=== PATIENT | female | born 1980 | race Caucasian/White ===

== ENCOUNTER 2018-01-13 15:14 | Emergency (ER) | payer SELFPAY ==
[2018-01-13 15:17] VITALS: BP 136/71; BMI 21.6
[2018-01-13] MEDS ORDERED: TORADOL 30 MG VIAL IVP ONE (15:24)
[2018-01-13] MEDS ORDERED: ATIVAN INJ 2 MG VIAL IVP ONE (15:24)
[2018-01-13] MEDS ORDERED: ATIVAN INJ 2 MG VIAL ONE (15:26)
[2018-01-13] MEDS ORDERED: TORADOL 30 MG VIAL ONE (15:26)
[2018-01-13] MEDS ORDERED: NS 1000 ML 1,000 ML IV ONE (15:26)
--- NOTE | 2018-01-13 15:28 | DR.FBACK ---
HPI - Time Seen Time seen: 16:01 (seen on arrival to ER room) - PCP Primary Care Physician: OLIVA - HPI Comment HPI Comment: Rt flank pain that started this morning as a nagging pain, then became spasmodic and worse this afternoon. Pt slid into a pipe yesterday playing ball, no other hx trauma, no prior episodes. No hx kidney stones. No prior episodes - Complaint Chief Complaint:: PATIENT C/O RIGHT SIDED BACK PAIN THAT STARTED THIS MORNING THAT HAS INTENSIFIED IN BACK AND THE PAIN COMES AND GOES EVERY 2 MINUTES. PATIENT STATES SHE HAS BEEN DRINKING ALOT OF WATER AND DRANK A BEER. Self Treatment fo Chief Complaint: tried warm soaks with epsom salts, drinking lots of water, no help - Reviewed Nurses Notes Review: Yes - Source History Provided: Patient - Mode of Arrival Mode of Arrival: Ambulatory - Timing Onset of Chief Complaint: 01/13/18 - Duration Duration: Intermittent (see above for progression) - Location Back Pain Location: Right, BACK, Flank - Severity Severity: Severe PMH - PMH Past Medical History: No (no contrib PMH apart from) Past Surgical History: Yes Surgical History: No History Past Surgical History Comment: BRAIN SURGERY - Family History History of Family Medical Conditions: No - Social History Does patient currently use any type of tobacco product: No Have you used tobacco products in the last 12 months: Yes Type of Tobacco Use: None Does any household member use tobacco: No Alcohol Use: Occasionally Do you use any recreational Drugs:: No Lives With: Family Lives Where: Home - infectious screening In the last 2 months have you had wt loss of >10#?: NO Have you had fever, night sweats or hemotysis?: No Have you traveled outside the country in the last 6 months?: No Isolation: Standard ROS - Review of Systems Constitutional: No Symptoms Reported Eyes: No Symptoms Reported ENTM: No Symptoms Reported Respiratoy: No Symptoms Reported Cardiovascular: No Symptoms Reported Gastrointestinal/Abdominal: No Symptoms Reported Genitourinary: No Symptoms Reported. negative: Dysuria, Frequency, Hematuria, Pain, Bleeding Neurological: No Symptoms Reported Musculoskeletal: Back Pain (rt flank) Integumentary: No Symptoms Reported. negative: Rash Endocrine: No Symptoms Reported Psychiatric: No Symptoms Reported All Other Systems: Reviewed and Negative PE - Vitals Vital Signs: Temp Pulse Resp BP Pulse Ox 01/13/18 15:15 98.1 F 91 H 22 136/71 100 - General Limitations: No Limitations General Appearance: Alert, In Distress (due to flank pain) - Head Head Exam: Normal Inspection, Normocephalic - ENT ENT Exam: Normal Exam, Normal Oropharynx - Respiratory Respiratory Exam: Normal Lung Sounds Bilat Respiratory Exam: Bilateral Clear to Auscultation - Cardiovascular Cardiovascular Exam: Regular Rate, Normal Rhythm, Normal Heart Sounds - Abdominal Exam Abdominal Exam: Normal Inspection, Normal Bowel Sounds, Soft. negative: Distention, Tenderness, Guarding, Rebound, Rigidity - Extremities Extremities Exam: Normal Inspection, Full ROM, Tenderness, Normal Capillary Refill, Edema - Back Back Exam: Normal Inspection, Full ROM, (R) CVA Tenderness. negative: Vertebral Tenderness - Neurological Neurological Exam: Alert, Oriented X3, Normal Gait - Psychiatric Psychiatric Exam: Normal Affect, Normal Mood - Skin Skin Exam: Warm, Dry, Intact. negative: Rash ROR - Labs Reviewed Laboratory Results Reviewed?: Yes (reviewed w/pt) Result Diagrams: 01/13/18 15:38 01/13/18 15:38 Laboratory: WBC 12.2 X10^3/uL (3.6-10.0) H 01/13/18 15:38 RBC 5.06 X10^6/uL (3.5-5.4) 01/13/18 15:38 Hgb 15.2 g/dL (12.0-16.0) 01/13/18 15:38 Hct 44.1 % (36.0-47.0) 01/13/18 15:38 MCV 87.3 fL (80.0-100.0) 01/13/18 15:38 MCH 30.1 pg (27.0-34.0) 01/13/18 15:38 MCHC 34.5 g/dL (33.0-35.0) 01/13/18 15:38 RDW 14.0 % (11.6-16.5) 01/13/18 15:38 Plt Count 227 X10^3/uL (150.0-450.0) 01/13/18 15:38 MPV 7.7 fL (7.4-11.0) 01/13/18 15:38 Neut % (Auto) 76.8 % (42.0-75.0) H 01/13/18 15:38 Lymph % (Auto) 16.6 % (21.0-51.0) L 01/13/18 15:38 Crisp % (Auto) 4.8 % (0.0-13.0) 01/13/18 15:38 Eos % (Auto) 1.0 % (0.9-2.9) 01/13/18 15:38 Baso % (Auto) 0.8 % (0.2-1.0) 01/13/18 15:38 Neut # (Auto) 9.3 x10^3/uL (2.2-4.8) H 01/13/18 15:38 Lymph # (Auto) 2.0 X10^3/uL (1.3-2.9) 01/13/18 15:38 Crisp # (Auto) 0.6 x10^3/uL (0.3-0.8) 01/13/18 15:38 Eos # (Auto) 0.1 x10^3/uL (0.0-0.2) 01/13/18 15:38 Baso # (Auto) 0.1 X10^3/uL (0.0-0.1) 01/13/18 15:38 Absolute Nucleated RBC 0.0 /100WBC 01/13/18 15:38 Sodium 136 mmol/L (136-145) 01/13/18 15:38 Corrected Sodium TNP 01/13/18 15:38 Potassium 4.1 mmol/L (3.5-5.1) 01/13/18 15:38 Chloride 100 mmol/L (98-107) 01/13/18 15:38 Carbon Dioxide 22.4 mmol/L (21-32) 01/13/18 15:38 BUN 9 mg/dL (7-18) 01/13/18 15:38 Creatinine 0.60 mg/dL (0.55-1.02) 01/13/18 15:38 Est GFR (MDRD) Af Amer > 60 (>60) 01/13/18 15:38 Est GFR (MDRD) Non-Af > 60 (>60) 01/13/18 15:38 Glucose 91 mg/dL (65-99) 01/13/18 15:38 Calcium 9.1 mg/dL (8.5-10.1) 01/13/18 15:38 Corrected Calcium TNP 01/13/18 15:38 Total Bilirubin 0.60 mg/dL (0.2-1.0) 01/13/18 15:38 AST 19 Units/L (15-37) 01/13/18 15:38 ALT 26 Units/L (12-78) 01/13/18 15:38 Alkaline Phosphatase 85 Units/L (46-116) 01/13/18 15:38 Total Protein 8.6 g/dL (6.4-8.2) H 01/13/18 15:38 Albumin 4.8 g/dL (3.4-5.0) 01/13/18 15:38 Globulin 3.8 g/dL (2.5-4.5) 01/13/18 15:38 Albumin/Globulin Ratio 1.3 Ratio (1.1-2.1) 01/13/18 15:38 Lipase 79 Units/L (73-393) 01/13/18 15:38 Specimen Type Clean catch urine 01/13/18 15:30 Urine Color Yellow (YELLOW) 01/13/18 15:30 Urine Appearance Hazy (CLEAR) 01/13/18 15:30 Urine pH 6.0 (5.0 - 8.0) 01/13/18 15:30 Ur Specific [place] 1.010 (1.000-1.030) 01/13/18 15:30 Urine Protein 3+ (NEGATIVE) 01/13/18 15:30 Urine Glucose (UA) Negative (NEGATIVE) 01/13/18 15:30 Urine Ketones Negative (NEGATIVE) 01/13/18 15:30 Urine Occult Blood 5+ (NEGATIVE) 01/13/18 15:30 Urine Nitrite Negative (NEGATIVE) 01/13/18 15:30 Urine Bilirubin Negative (NEGATIVE) 01/13/18 15:30 Urine Urobilinogen Normal (NORMAL) 01/13/18 15:30 Ur Leukocyte Esterase 3+ (NEGATIVE) 01/13/18 15:30 Urine RBC 3-5 /HPF (NONE SEEN) 01/13/18 15:30 Urine WBC Tntc /HPF (NONE SEEN) 01/13/18 15:30 Ur Squamous Epith Cells Few /HPF (NEGATIVE) 01/13/18 15:30 Amorphous Sediment Trace /HPF (NEGATIVE) 01/13/18 15:30 Urine Bacteria 2+ /HPF (NEGATIVE) 01/13/18 15:30 Hyaline Casts Rare /LPF (NEGATIVE) 01/13/18 15:30 Ur Culture Indicated? Yes/culture set up 01/13/18 15:30 - XRAY XRAY Interpreted by: Radiologist XRAY Findings: ct w/mild hydro rt kidney, no stone seen (?passed stone?) no other acute - Diagnosis Discharge Problem: Urinary tract stones, UTI (urinary tract infection) - Discharge Plan Disposition: HOME, SELF-CARE Condition: Stable Prescriptions: Amoxicillin/Potassium Clav [Augmentin 875-125 Tablet] 1 tab PO Q12H #20 tab Ketorolac Tromethamine [Toradol Tab] 10 mg PO Q8H PRN #12 tab PRN Reason: Pain - Follow ups/Referrals Follow ups/Referrals: NFD,None [Primary Care Provider] - 3 days - Instructions Instructions: Antibiotic Medicine, Adult, Kidney Stones, [id number], Urinary Tract Infection, Adult, [id number] Additional Notes - Additional Notes Additional Notes: Pt in distress due to pain on arrival, responded quickly and well to toradol and ativan. Reviewed w/u with pt, question of recently passed stone(passed on arrival to ER). Will give rocephin x 1g IV uuin ER and Rx Augmentin for UTI
[2018-01-13] MEDS ORDERED: NS 1000 ML 1,000 ML ONE (15:31)
[2018-01-13 15:47] LABS: BASOPHILS # (AUTO) 0.1 X10^3/uL (0.0-0.1); BASOPHILS % (AUTO) 0.8 % (0.2-1.0); EOSINOPHILS # (AUTO) 0.1 x10^3/uL (0.0-0.2); HEMATOCRIT 44.1 % (36.0-47.0); HEMOGLOBIN 15.2 g/dL (12.0-16.0); LYMPHOCYTES % (AUTO) 16.6 % (21.0-51.0); MEAN CORPUSCULAR HEMOGLOBIN 30.1 pg (27.0-34.0); MEAN CORPUSCULAR HGB CONC 34.5 g/dL (33.0-35.0); MEAN CORPUSCULAR VOLUME 87.3 fL (80.0-100.0); MEAN PLATELET VOLUME 7.7 fL (7.4-11.0); MONOCYTES # (AUTO) 0.6 x10^3/uL (0.3-0.8); MONOCYTES % (AUTO) 4.8 % (0.0-13.0); NEUTROPHILS # (AUTO) 9.3 x10^3/uL (2.2-4.8); NEUTROPHILS % (AUTO) 76.8 % (42.0-75.0); PLATELET COUNT 227 X10^3/uL (150.0-450.0); RED BLOOD COUNT 5.06 X10^6/uL (3.5-5.4); WHITE BLOOD COUNT 12.2 X10^3/uL (3.6-10.0)
[2018-01-13 15:57] LABS: ALANINE AMINOTRANSFERASE 26 Units/L (12-78); ALBUMIN 4.8 g/dL (3.4-5.0); ALKALINE PHOSPHATASE 85 Units/L (46-116); ASPARTATE AMINO TRANSFERASE 19 Units/L (15-37); BLOOD UREA NITROGEN 9 mg/dL (7-18); CALCIUM 9.1 mg/dL (8.5-10.1); CARBON DIOXIDE 22.4 mmol/L (21-32); CHLORIDE 100 mmol/L (98-107); LIPASE 79 Units/L (73-393); SODIUM 136 mmol/L (136-145); TOTAL PROTEIN 8.6 g/dL (6.4-8.2); eGFR BLACK RACES > 60 (>60); eGFR NON BLACK RACES > 60 (>60)
[2018-01-13 15:57] LABS: BILIRUBIN,URINE NEGATIVE (NEGATIVE); BLOOD/HEMOGLOBIN,URINE 5+ (NEGATIVE); GLUCOSE, URINE NEGATIVE (NEGATIVE); KETONES,URINE NEGATIVE (NEGATIVE); LEUKOCYTE ESTERASE ,URINE 3+ (NEGATIVE); NITRITES,URINE NEGATIVE (NEGATIVE); PROTEIN,URINE 3+ (NEGATIVE); UROBILINOGEN,URINE NORMAL (NORMAL)
[2018-01-13 15:58] LABS: APPEARANCE,URINE HAZY (CLEAR); COLOR,URINE YELLOW (YELLOW)
--- NOTE | 2018-01-13 16:05 | CT ---
HISTORY: Suspected kidney stone, right flank pain Study: CT abdomen and pelvis without IV or oral contrast Comparison: No priors Technique: Multiple axial images of the abdomen and pelvis were obtained from the lung bases to the pubic symphy sis without the administration of IV or oral contrast. Coronal and sagittal images are also reviewed . Dose reduction techniques utilized automatic exposure control. Findings: The visualized portions of the lung bases are unremarkable. The liver, spleen, pancreas, left kidney and adrenal glands are unremarkable in their CT appearance. Multiple small calcified gallstones are present. No evidence of gallbladder wall thickening or pericholecystic fluid is seen.. There is very mild right-sided hydronephrosis. The right ureter is normal. No evidence of kidney stone is seen. The re is no evidence of hydroureter. No significant mesenteric lymphadenopathy or stranding can be obse rved. No free fluid or free air is seen within the abdomen. No bowel wall thickening or bowel dilat ation is present. A small calcification is present within the appendix which may represent appendicol ith. No evidence of appendiceal enlargement or periods appendiceal inflammatory changes are seen. The appendix and calcification are best seen on series 3, image 78 and also on series 5, image 17. The colon is unremarkable. Specifically, there is no diverticulosis noted within the sigmoid colon. Uter us and ovaries are normal. The urinary bladder is grossly unremarkable. Small calcifications are pres ent involving the region of bladder base on the left these are likely vascular The bony structures a re grossly intact. IMPRESSION: Multiple small calcified gallstones. No evidence of gallbladder wall thickening or pericholecystic fl uid is seen. Very mild right-sided hydronephrosis. Right ureter is normal. No evidence of kidney stone is seen on either side. Calcification present within a normal appearing appendix. Reported By:
[2018-01-13 16:15] LABS: AMORPHOUS SEDIMENT,UR TRACE /HPF (NEGATIVE); BACTERIA,URINE 2+ /HPF (NEGATIVE); SQUAMOUS EPITHELIAL CELL,UR FEW /HPF (NEGATIVE)
[2018-01-13 16:16] LABS: HYALINE CASTS, URINE RARE /LPF (NEGATIVE)
[2018-01-13] MEDS ORDERED: ROCEPHIN 1 GM IV PREMIX 1 GM/50 ML IV.SOLN. IV ONE ×2 (16:45→16:46)
== END 2018-01-13 17:11 | disposition home or self-care (01) ==
LOC: ER 15:30
DX: N21.0 Calculus in bladder (principal); N39.0 Urinary tract infection, site not specified; N13.30 Unspecified hydronephrosis; B96.20 Unspecified Escherichia coli [E. coli] as the cause of diseases classified elsewhere
CPT/HCPCS: 36415; 74176; 80053; 81001; 83690; 85025; 87086; 87088; 87186; 96365; 96374; 96375; 99283; A4222; J0696; J1885; J2060

== ENCOUNTER 2021-06-21 06:28 | Inpatient (IN) ==
[2021-06-21] MEDS ORDERED: ANCEF 1 GRAM IV PREMIX* 1 G/50 ML BAG IV ONE ×2 (06:35→07:57)
[2021-06-21] MEDS ORDERED: LR 1000 ML IV 1,000 ML IV ONE ×3 (06:35→08:45)
[2021-06-21] MEDS ORDERED: ANCEF VIAL 1 GRAM IVP ONE (06:44)
[2021-06-21 07:08] LABS: BASOPHILS # (AUTO) 0.1 X10^3/uL (0.0-0.1); BASOPHILS % (AUTO) 0.7 % (0.2-1.0); EOSINOPHILS # (AUTO) 0.1 x10^3/uL (0.0-0.2); EOSINOPHILS % (AUTO) 0.7 % (0.9-2.9); HEMATOCRIT 36.1 % (36.0-47.0); HEMOGLOBIN 12.5 g/dL (12.0-16.0); LYMPHOCYTES # (AUTO) 1.9 X10^3/uL (1.3-2.9); LYMPHOCYTES % (AUTO) 19.3 % (21.0-51.0); MEAN CORPUSCULAR HEMOGLOBIN 29.2 pg (27.0-34.0); MEAN CORPUSCULAR HGB CONC 34.7 g/dL (33.0-35.0); MEAN CORPUSCULAR VOLUME 84.1 fL (80.0-100.0); MEAN PLATELET VOLUME 8.7 fL (7.4-11.0); MONOCYTES # (AUTO) 0.5 x10^3/uL (0.3-0.8); MONOCYTES % (AUTO) 5.1 % (0.0-13.0); NEUTROPHILS # (AUTO) 7.2 x10^3/uL (2.2-4.8); NEUTROPHILS % (AUTO) 74.2 % (42.0-75.0); PLATELET COUNT 210 X10^3/uL (150.0-450.0); RED CELL DISTRIBUTION WIDTH 14.8 % (11.6-16.5); WHITE BLOOD COUNT 9.7 X10^3/uL (3.6-10.0)
[2021-06-21] MEDS ORDERED: DILAUDID INJ ONE (07:17)
[2021-06-21 07:21] LABS: BLOOD UREA NITROGEN 7 mg/dL (7-18); CALCIUM 8.2 mg/dL (8.5-10.1); CARBON DIOXIDE 21.2 mmol/L (21-32); CHLORIDE 101 mmol/L (98-107); CREATININE 0.64 mg/dL (0.55-1.02); SODIUM 135 mmol/L (136-145); eGFR NON BLACK RACES > 60 (>60)
[2021-06-21] MEDS ORDERED: EPHEDRINE SULFATE INJ ONE (07:39)
[2021-06-21] MEDS ORDERED: MARCAINE SPINAL ONE (07:39)
[2021-06-21] MEDS ORDERED: TORADOL 30 MG VIAL ONE (07:39)
[2021-06-21] MEDS ORDERED: VERSED ONE (07:39)
[2021-06-21] MEDS ORDERED: XYLOCAINE 1 % (PLAIN) ONE (07:39)
[2021-06-21] MEDS ORDERED: D5 1/2 NS 1L W PITOCIN 20 UNITS/L 20 UNITS/1,000 ML BAG IV ONE (08:44)
[2021-06-21] MEDS ORDERED: PHENERGAN INJ 25 MG IM PRN ×2 (08:57→09:52)
[2021-06-21] MEDS ORDERED: REGLAN INJ 10 MG VIAL IVP PRN ×2 (08:57→10:07)
[2021-06-21] MEDS ORDERED: BENADRYL INJ 50 MG VIAL IVP PRN ×2 (08:57→10:07)
[2021-06-21] MEDS ORDERED: DILAUDID INJ IVP PRN (08:57)
[2021-06-21] MEDS ORDERED: BARHEMSYS INJ IVP PRN (08:57)
[2021-06-21] MEDS ORDERED: ZOFRAN INJ 4 MG VIAL IVP PRN ×2 (08:57→09:52)
[2021-06-21 09:36] LABS: BILIRUBIN,URINE NEGATIVE (NEGATIVE); BLOOD/HEMOGLOBIN,URINE 3+ (NEGATIVE); GLUCOSE, URINE NEGATIVE (NEGATIVE); KETONES,URINE 1+ (NEGATIVE); LEUKOCYTE ESTERASE ,URINE NEGATIVE (NEGATIVE); NITRITES,URINE NEGATIVE (NEGATIVE); PROTEIN,URINE 3+ (NEGATIVE); UROBILINOGEN,URINE NORMAL (NORMAL)
[2021-06-21 09:47] LABS: AMORPHOUS SEDIMENT,UR TRACE /HPF (NEGATIVE); APPEARANCE,URINE HAZY (CLEAR); BACTERIA,URINE TRACE /HPF (NEGATIVE); COLOR,URINE DARK YELLOW (YELLOW); MUCUS,URINE MODERATE /HPF (NEGATIVE); SQUAMOUS EPITHELIAL CELL,UR MODERATE /HPF (NEGATIVE); TRANSITIONAL EPI CELLS,URINE FEW /HPF (NEGATIVE)
[2021-06-21] MEDS ORDERED: PERCOCET TAB 5/325 MG PO PRN (09:52)
[2021-06-21] MEDS ORDERED: NARCAN INJ IVP PRN ×2 (10:07)
[2021-06-21] MEDS: TORADOL 30 MG VIAL IVP SCH ×4 (10:14→20:58)
[2021-06-21] MEDS ORDERED: HYPERRHO S/D (or RHOGAM) IM ONE (16:14)
[2021-06-21] MEDS ORDERED: PREPARATION H OINT RECTAL PRN (19:33)
[2021-06-22] MEDS: TORADOL 30 MG VIAL IVP SCH (04:13)
[2021-06-22 06:25] LABS: HEMOGLOBIN 10.6 g/dL (12.0-16.0)
--- NOTE | 2021-06-22 07:24 | NOTE.PROBC ---
Progress Note OB-C/S Subjective Data Subjective: No complaints, decreased lochia. Tolerating regular diet. No N/V. Ambulating well. [place] draining well. Pain under good control with toradol. Objective Data Result Diagrams: 06/22/21 05:46 06/21/21 06:57 Objective Data: CV= RRR no MRG Lungs=CTA Bilaterally Abd=(+) BS, soft, ND, appropriately tender near incision. Bandage removed. Incision clean/dry/intact, no erythema, no bleeding, no discharge. Dermabond/Stitches intact. Fundus firm/NT/ at { } cm below umbilicus. Ext= No edema, NT, No Cords. Graduated Compression Stockings/Sequential Compression Devices Bilaterally. Plan (1) Advanced maternal age (AMA), 40 years or greater: Plan: now s/p repeat /tubal and requesting early d/c. (2) Previous section:
[2021-06-22 07:59] VITALS: BP 106/59
== END 2021-06-22 12:45 | disposition home or self-care (01) | DRG 784 ==
LOC: LD 06:28 → MED/SURG 06:44
PROVIDERS: ADMIT Obstetrics & Gynecology; ATTEND Obstetrics & Gynecology
DX: Z37.0 Single live birth; Z29.13 Encounter for prophylactic Rho(D) immune globulin; O09.93 Supervision of high risk pregnancy, unspecified, third trimester; O34.211 Maternal care for low transverse scar from previous cesarean delivery; Z20.822 Contact with and (suspected) exposure to COVID-19; Z30.2 Encounter for sterilization; O36.0930 Maternal care for other rhesus isoimmunization, third trimester, not applicable or unspecified; N85.8 Other specified noninflammatory disorders of uterus; Z3A.39 39 weeks gestation of pregnancy